=== PATIENT | male | born 1985 | race African-American/Black ===

== ENCOUNTER 2020-02-06 21:06 | Emergency (ER) | payer MEDICAID ==
[~2020-02-06] VITALS: Ht 185.4 cm; Wt 83.9 kg
[2020-02-06 22:59] VITALS: BP 124/68
== END 2020-02-06 23:00 | disposition home or self-care (01) ==
LOC: ER 21:06
DX: B34.9 Viral infection, unspecified (principal); R03.0 Elevated blood-pressure reading, without diagnosis of hypertension; Z03.818 Encounter for observation for suspected exposure to other biological agents ruled out; R68.83 Chills (without fever); H57.89 Other specified disorders of eye and adnexa
CPT/HCPCS: 99282